=== PATIENT | female | born 1930 | race Caucasian/White ===

== ENCOUNTER 2017-06-30 09:23 | Observation (INO) | payer OTHER ==
--- NOTE | 2017-06-30 09:56 | EDPHY ---
General Time Seen by Provider: 06/30/17 09:32 Narrative: CHIEF COMPLAINT: M1 hold HISTORY OF PRESENT ILLNESS: Patient arrives by EMS and is seen at time arrival. They report that she has been placed on an M1 hold by [facility] due to alleged psychosis , aggression and lack of care. Patient denies any complaints of any kind. She says that she feels fine does not want to be here and does not want evaluation. She is cooperative and not aggressive towards me. She says that she feels that her spouse has been having her medications. She reports that she was started on Seroquel several weeks ago for decreased appetite. It was changed 1 week ago and she did not tolerate this increase, thus she went back to her original dosing. She denies any chest pain, shortness of breath, sore throat, abdominal pain, urinary complaints, rashes or lesions. No headache. No neck pain or stiffness. No other associated complaints or modifying factors. REVIEW OF SYSTEMS: Ten systems reviewed and are negative unless otherwise noted in the HPI PCP: Dr. Finn SPECIALISTS: None PAST MEDICAL HISTORY: Failure to thrive, hypothyroid, scleroderma PAST SURGICAL HISTORY: No recent surgeries SOCIAL HISTORY: Lives in independent living at [facility] FAMILY HISTORY: Noncontributory EXAMINATION General Appearance: Alert, no distress Head: normocephalic, atraumatic Eyes: Pupils equal and round, no conjunctival pallor or injection ENT, Mouth: Mucous membranes moist Neck: Normal inspection, supple, non-tender Respiratory: Lungs are clear to auscultation Cardiovascular: Regular rate and rhythm no murmur Gastrointestinal: Abdomen is soft and nontender Back: non-tender, no bony abnormalities Neurological: Alert to person, place and time. Nonfocal with steady gait. Strength is symmetric in the extremities. No pronator drift. Normal finger-to- nose. Skin: Warm and dry, no rash Extremities: Nontender, no pedal edema Psychiatric: Mood and affect normal. Denies suicidal ideation. No evidence of delusion or hallucinations. DIFFERENTIAL DIAGNOSES: Including but not limited to dementia, psychosis, paranoia, UTI, delirium, pneumonia MDM: 9:30 a.m. M1 hold due to hallucinations and reports of psychosis and possibly grave disability. The patient denies any thoughts of suicide. She denies any complaints of illness. She does arrive on an M1 hold from [employer] as documented. She is very cooperative thus far. There is mention that she may have early dementia, but she is awake and alert at this time. No altered mentation by my appreciation. Vital signs are within normal limits. Her heart rate is regular. I have ordered laboratory studies, chest x-ray, urinalysis and EKG to rule out infection and/or dysrhythmia. She is resting comfortably in no acute distress. 9:50 a.m. I have contacted the patient's son to discuss her care. He states that he was notified this morning by the director of her independent living facility. She informed him that the patient was allegedly being agitated and has stated that she thinks her spouse is hiding her medications. No mention of physical abuse from her. The patient says that she has been stating this for several weeks, feeling that her spouse in the facility is hiding her medications. He notes that she had some psychoses over the past 2 months, with some visual hallucinations. She has been treated with Seroquel and had improvement few weeks ago. One week ago they use her medication she did not tolerate this. She is not certain if she went back to the original dose or she stop this completely. 10:20 a.m. Notified by radiologist Dr. Quinteros. Chronic changes are noted on the CT scan of the head. No acute findings. 10:30 a.m. Radiologist has read the chest x-ray is chronic changes as documented. No mention of pneumonia. 10:33 a.m. CBC reveals an anemia at 7.2 with hematocrit 25. No previous values available for comparison 10:40 a.m. Digital rectal exam performed with female RN plaster tender. No gross blood noted. No hemorrhoids. Occult sample sent 11:30 a.m. M1 hold has been lifted by Dr. Mcdaniel. Patient does not meet criteria by our appreciation at this time. She does however meet criteria for admission with symptomatic anemia and she has been very fatigued and had difficulty ambulating distances. She did not 1st mention this but she did mention when I was discussing her hemoglobin loss. 12:20 p.m. Urinalysis is negative for any infection. Hospitalist has been paged for admission. 12:35 p.m. Case discussed with hospitalist Dr. Storm. She will admit the patient to her service. She is admitted in stable condition. We discussed that she may need inpatient psychiatric evaluation, but at this time she does not meet any criteria for detainer or or M1 hold. SUPERVISION: Patient was independently examined, but I discussed the case with my secondary supervising physician Dr. Mcdaniel - History Smoking Status: Never smoked - Objective Vital Signs: Initial Vital Signs Temperature (C) 98.4 F 06/30/17 09:26 Heart Rate 86 06/30/17 09:26 Respiratory Rate 18 06/30/17 09:26 Blood Pressure 142/45 H 06/30/17 09:26 O2 Sat (%) 95 06/30/17 09:26 O2 Delivery Mode Room Air Allergies/Adverse Reactions: No Known Allergies Allergy (Unverified 09/16/15 10:00) Home Medications: Medication Instructions Recorded Omeprazole Magnesium [Prilosec Otc] 20 mg PO BIDMEAL 09/16/15 Aspirin [Aspirin 325 mg (*)] 325 mg PO DAILY PRN 06/30/17 Herbals/Supplements -Info Only 1 ea PO DAILY 06/30/17 LORazepam [Ativan (*)] 1 mg PO HS 06/30/17 Levothyroxine [Synthroid 75 mcg 75 mcg PO DAILY06 06/30/17 (*)] Laboratory Results: Laboratory Results 06/30/17 09:55 06/30/17 09:55 Medications Given: Levothyroxine Sodium (Synthroid) 75 mcg PO DAILY06 COUNTS INCLUDE 234 BEDS AT THE [facility] Stop: 12/28/17 05:59 Last Admin: 07/01/17 05:47 Dose: 75 mcg Lorazepam (Ativan) 1 mg PO [facility] Stop: 12/27/17 20:59 Last Admin: 06/30/17 21:08 Dose: 1 mg Pantoprazole Sodium (Protonix) 40 mg PO BIDMEAL COUNTS INCLUDE 234 BEDS AT THE [facility] Stop: 12/27/17 17:59 Last Admin: 06/30/17 17:39 Dose: 40 mg Departure - Departure Disposition: [facility] Acute Clinical Impression: Symptomatic anemia, Weakness Condition: Good
--- NOTE | 2017-06-30 09:57 | CPEKG ---
Heart Rate: 74 RR Interval: 811 P-R Interval: 116 QRSD Interval: 70 QT Interval: 376 QTC Interval: 418 P Fenwick: 59 QRS Fenwick: 13 T Wave Fenwick: 34 EKG Severity - ABNORMAL ECG - EKG Impression: SINUS RHYTHM Electronically Signed By: Julito Mcdaniel 30-Jun-2017 10:08:23
[2017-06-30 10:13] LABS: PLATELET COUNT 442 10^3/uL (150-400)
[2017-06-30] MEDS ORDERED: ONDANSETRON DISINTEGRATING 4 MG TAB PO PRN (14:45)
[2017-06-30] MEDS ORDERED: oxyCODONE IR 5 MG TAB PO PRN (14:45)
[2017-06-30] MEDS ORDERED: ACETAMINOPHEN 325 MG TAB PO PRN (14:45)
[2017-06-30] MEDS ORDERED: ONDANSETRON 4 MG/2 ML VIAL IVP PRN (14:45)
[2017-06-30] MEDS ORDERED: PROMETHAZINE HCL 25 MG/ML INJ IVP PRN (14:45)
--- NOTE | 2017-06-30 16:12 | GHP ---
[f rep st] HISTORY AND PHYSICAL DATE OF ADMISSION: 06/30/2017 CHIEF COMPLAINT: "Had an argument with my ." HISTORY OF PRESENT ILLNESS: This is an 87-year-old female with past medical history that includes GE RD and scleroderma, who presents to the ER initially on an M1 hold with concerns of bizarre behavior and perhaps psychosis. Per report, the patient was acting strangely at her assisted living facility and her had concerns as well that she may be hiding medications or doing other abnormal behav iors. By the time of her arrival here in the emergency department, she was alert, oriented, and quit e rational and lucid appearing. She does admit to having some concerns that someone has been breakin g into her apartment and perhaps stealing things from her, though she assures me that this is not an illusion, but is actually happening. She is easily reoriented and denied any suicidal or homicidal i deation. Otherwise, she only complains of feeling more and more tired over the last several years. 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 She states that she feels her fatigue is in keeping with usual old age. She does note that she has had some dark stools in the past, but not recently. She has had a colon oscopy many years ago and is very reluctant to ever undergo another one given her age. PAST MEDICAL HISTORY: 1. GERD. 2. Scleroderma. 3. Raynaud's. 4. Hypothyroid. PAST SURGICAL HISTORY: She does not not recall, but denies any abdominal surgeries, and states that they were very remote. FAMILY HISTORY: This was reviewed and noncontributory. SOCIAL HISTORY: The patient resides at [facility] with her who she is a caregiver for . She has 2 grown children living out of [facility]. She is a nonsmoker, nondrinker, nondrug user. REVIEW OF SYSTEMS: A 10-point review of systems was obtained and negative except as per HPI. MEDICATIONS: Include: 1. Omeprazole. 2. Levothyroxine. 3. Ativan. 4. Aspirin. ALLERGIES: No known drug allergies. PHYSICAL EXAMINATION: VITAL SIGNS: Blood pressure 155/77, heart rate 72, respiratory rate 15, O2 sa turations 95% on room air, and temperature is 36.8. GENERAL APPEARANCE: This is an elderly, frail appearing female. She is awake and alert. She is in no acute distress. EYES: Anicteric. HENT: M oist mucous membranes. Oropharynx clear. CARDIOVASCULAR: Regular rate and rhythm, no MRG. PULMONA RY: CTA bilaterally. Normal work of breathing. ABDOMEN: Soft, nontender. Positive bowel sounds. EXTREMITIES: Trace bilateral lower extremity edema. SKIN: Warm, dry, well perfused. NEURO/PSYCHIATRIC: Patient is oriented and appropriate. Her thought process is rational and linear. CLINICAL DATA: Labs are notable for a hemoglobin of 7.2, hematocrit 25.3, platelets of 442. Sole Tacker ry is unremarkable. TSH is 0.9. Urinalysis shows only 1+ leukocyte esterase. Stool occult blood is negative. Tox screen is positive only for benzodiazepines. Chest x-ray: Personally reviewed and interpreted, shows linear scarring versus atelectasis, unchange d from prior head CT without acute findings showing moderate atrophy and other nonspecific hypodensit ies in the white matter. ASSESSMENT AND PLAN: This is an 87-year-old female presenting with concerns of psychotic behavior at home, as well as anemia. 1. Question of psychosis. Again, this seems incompatible with evaluation here in the emergency depa rtment. Her M1 hold was dropped. We will continue to monitor and consider involvement of [facility] or [facility] if this recurs, but at this time, I do not see any obvious reason for psychiatric consultatio n. Will attempt to get more information from patient's . 2. Anemia. There was concern that this could be symptomatic anemia per the emergency department. Destin ramírez, in discussion with the patient she notes that she has been fatigued for many years and attrib utes this to her advanced age. Her baseline hemoglobin and hematocrit are unknown. She has no sympt oms to suggest active bleeding. She is not interested in undergoing a gastrointestinal workup includ ing colonoscopy or EGD. At this time, we will obtain serial hemoglobin and hematocrit and only consi dang further workup if it appears she is having an acute blood-loss episode. 3. Gastroesophageal reflux disease. We will continue proton pump inhibitor. 4. Hypothyroidism. Will continue levothyroxine. 5. Scleroderma. No significant evidence of this on examination, and patient states she is no longer on medications. Suspect this is a limited scleroderma history. 6. Code status. This was discussed with the patient. She states she would like to be do not resusc itate. 7. Observation status. The patient will likely need less than a 48-hour stay. 8. Patient is new to my care. Old records reviewed and summarized as per HPI and past medical histo ry. Care plan reviewed with emergency department physician including plans for workup of anemia. /[id number]/MODL
[2017-06-30] MEDS: PANTOPRAZOLE SODIUM 40 MG TAB PO SCH (17:39)
[2017-06-30] MEDS: LORazepam 1 MG TAB PO SCH (21:08)
[2017-07-01 04:51] LABS: PLATELET COUNT 431 10^3/uL (150-400)
[2017-07-01] MEDS: LEVOTHYROXINE 75 MCG TAB PO SCH (05:47)
[2017-07-01] MEDS: PANTOPRAZOLE SODIUM 40 MG TAB PO SCH ×2 (09:56→21:03)
--- NOTE | 2017-07-01 12:17 | HOSPPROG ---
Hospitalist Progress Note Assessment/Plan: 87 yo F brought in on M1 hold with concerns of psychosis found to have anemia # anemia: quite microcytic, drop in h/h overnight that is likely at least in part dilutional given lack of obvious bleeding. Will repeat occult blood. Smear is concerning for possible hemolytic anemia with schistocytes, will check iron studies as well as LDH, haptoglobin and bilirubin. Patient continues to express the wish to avoid any procedures given her age so will hold off on consulting GI. Transfusing 2 units PRBCs. # ? psychosis: patient brought in on M1 hold with concerns for psychosis and delusions but since arrival has been appropriate, she does express some concerns about people breaking into her house and possibly stealing from her, CM involved, will attempt to get more information from facility. M1 hold dropped. # hypothyroid: continue Lt4, TSH slightly low but appropriate for being on repletion # gerd: patient states this is not worse than prior, continue PPI, consider w/u for UGIB if anemia continues to worsen # generalized weakness: patient states this has been worsening with time, will have pt/ot evaluate # protein calorie malnutrition: BMI of 17, patient notes there has been a prolonged period for her of not wanting to eat much, will ask dietary to eval # dispo: IP status, will need > 48 hours for eval/mgmt of above and monitoring of anemia Subjective: no significant overnight events, patient states she feels much better today, she is worried about her who is home alone Objective: Vital Signs Temp Pulse Resp BP Pulse Ox 37.0 C 75 20 142/69 H 94 07/01/17 07:59 07/01/17 11:50 07/01/17 11:50 07/01/17 11:50 07/01/17 11:50 Laboratory Results 07/01/17 04:16 07/01/17 04:16 06/30/17 07/01/17 07/02/17 05:59 05:59 05:59 Intake Total 400 Output Total 600 Balance -200 elderly frail awake alert anicteric mmm rrr no mrg cta b soft nt nd no cce warm dry well perfused oriented appropriate ICD10 Worksheet Patient Problems: Problems Problem Status Onset Symptomatic anemia Acute Weakness Acute
--- NOTE | 2017-07-01 13:14 | PDMN ---
Medical Necessity Medical necessity: C/M review: Patient meets INPT criteria under [facility] [place]-[facility] Anemia, iron deficiency or unspecified: Acute and persistent anemia, quite microcytic of unclear etiology Hgb 7.2, 6.8, 6.3, Hct 25.3, 23.0, 22.1, stool occult blood screen negative, questionable psychosis and delusions on admission M1 hold, since arrival patient has been appropriate, M1 hold dropped, generalized weakness, protein calorie malnutrition, BMI 17,requiring 2 units PRBCs thus far, Dietary consult, monitoring Hgb, Hct., acute inpt PT/OT, comorbid hypothyroidism, GERD. MD anticipates > 2 [place] LOS for ongoing med nec fro eval and [place] of above. Patient is Medicare Advantage which follows guidelines CMS puts forth.
--- NOTE | 2017-07-01 18:01 | ASMTCMCOM ---
CM Note CM Note Notes: Spoke w/pt, she and her live at [facility]. Pt was brought in for psychotic behavior but cleared after arriving to ER and M1 was dropped. Pt is independent in mobility and fairly clear in her thinking but does seem anxious and at times slightly confused. 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 CM asked pt if she would be open to private caregivers to help and pt says maybe but finds people in the home can add to stress as they are strangers. She and her do not have a car so going to get groceries can be taxing. CM left pt with M[facility] brochure and the [facility]. It's unclear if we can get homecare for pt as she is independent w/mobility but may benefit from HH RN for malnutrition/calorie intake? CM called son Tobias cell:[phone] home:[phone] work:[phone], he is is [place]. Pt's other son a few years ago but he does have a sister who lives in [place]. Son states he and his sister have been concerned for a while and want to get parents into AL but they are resistant. CM gave son names of non skilled homecare agencies and name of a professional artist manager to help, especially with getting POA. Son requests call from , Dr Storm notified and will call son in am. DC Plan: vs Independent Date Signed: 07/01/2017 06:00 PM Electronically Signed By:Christiane Frederick RN
--- NOTE | 2017-07-01 18:07 | ASMTCMCOM ---
CM Note CM Note Notes: Forgot to include on previous note; pt's son states that pt was started on low dose of seroquel because of some delusions, unclear if pt stopped taking them. Date Signed: 07/01/2017 06:07 PM Electronically Signed By:Christiane Frederick RN
[2017-07-01] MEDS: LORazepam 1 MG TAB PO SCH (21:03)
[2017-07-02] MEDS: LEVOTHYROXINE 75 MCG TAB PO SCH (06:33)
[2017-07-02] MEDS: PANTOPRAZOLE SODIUM 40 MG TAB PO SCH (08:33)
[2017-07-02 11:17] VITALS: BP 132/71
--- NOTE | 2017-07-02 13:22 | PDDCSUM ---
Discharge Summary Discharge Summary: Dates of service 06/30-07/02/17 Consultations: none Procedures: head CT Hospital course by problem: 87 yo F brought in on M1 hold with concerns of psychosis found to have anemia # anemia: microcytic and quite low. Discussed blood transfusion and colonoscopy with patient--she declines both. Discussed with her son, he understands and supports his mothers decision to not have this worked up further as she is not interested in prolonging her life and has concerns about a procedure or transfusion. Recommend she f/u with PCP to determine whether or not to recheck blood counts. Discontinued aspirin. # delusions: patient brought in on M1 hold with concerns for psychosis and delusions but since arrival has been appropriate, patient continues to express beliefs that people are breaking into her house to vacuum and steal things. Discussed with her son, this has been an ongoing issues, previously better on seroquel however she is no longer taking this. F/u with PCP to determine whether or not to resume # hypothyroid: continue Lt4, TSH slightly low but appropriate for being on repletion # gerd: patient states this is not worse than prior, continue PPI, consider w/u for UGIB if anemia continues to worsen # generalized weakness: patient states this has been worsening with time, will have pt/ot evaluate # protein calorie malnutrition: BMI of 17, patient notes there has been a prolonged period for her of not wanting to eat much DNR Items for follow up: --discuss with PCP whether or not to recheck blood counts and reconsider transfusion/colonoscopy etc --f/u of delusional thinking and whether or not to resume seroquel dc home > 35 min spent in dc more than half in coordination of care and discussion with patients son
--- NOTE | 2017-07-02 14:20 | ASDISCHSUM ---
Discharge Information Plan Status:Home with No Needs Medically Cleared to Leave:07/02/2017 Discharge Date:07/02/2017 CM D/C Disposition:Home, Routine, Self-Care ADT D/C Disposition:Home, Routine, Self-Care Projected Discharge Date:07/02/2017 Transportation at D/C:Friend Discharge Delay Reason: Follow-Up Date:07/02/2017 Discharge Slot: Final Diagnosis: Placement Information Patient Contact Information Contact Name:YANETH Relationship:Jennifer Address:[address] Work Phone: City:[place] Alternate Phone: State/Zip Code:[place] [address] Email: Financial Information Financial Class:Medicare Advantage Plans Primary Plan Desc:[employer] OUTPAT Primary Plan Number:[id number] Secondary Plan Desc: Secondary Plan Number: Assessment Information [facility] Progress Note CM Note CM Note Notes: Spoke w/pt, she and her live at [facility]. Pt was brought in for psychotic behavior but cleared after arriving to ER and M1 was dropped. Pt is independent in mobility and fairly clear in her thinking but does seem anxious and at times slightly confused. 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 BITA asked pt if she would be open to private caregivers to help and pt says maybe but finds people in the home can add to stress as they are strangers. She and her do not have a car so going to get groceries can be taxing. BITA left pt with MOW brochure and the [facility]. It's unclear if we can get homecare for pt as she is independent w/mobility but may benefit from HH RN for malnutrition/calorie intake? BITA called cristian Collado cell:[phone] home:[phone] work:[phone], he is is [place]. Pt's other son a few years ago but he does have a sister who lives in [place]. Son states he and his sister have been concerned for a while and want to get parents into AL but they are resistant. CM gave son names of non skilled homecare agencies and name of a professional efficiency manager to help, especially with getting POA. Son requests call from , Dr Storm notified and will call son in am. DC Plan: [facility] Independent Date Signed: 07/01/2017 06:00 PM Electronically Signed By:Christiane Frederick RN LACE LACE Length of stay for Answers: 2 days current admission Acuity / Level of Answers: Yes Care: Did the patient have an inpatient admission? Comorbidities - select Answers: Other Notes: Hypothyroid,Gerd, Scler ode all that apply Navneet brice # of Emergency department Answers: 1-2 visits in the last 6 months Social determinants Answers: Mental health diagnosis (anxiety, depression, pers onality disorders, etc.) Score: 10 Date Signed: 07/02/2017 02:19 PM Electronically Signed By:NAYELY Driver [facility] Progress Note CM Note CM Note Notes: Forgot to include on previous note; pt's son states that pt was started on low dose of seroquel because of some delusions, unclear if pt stopped taking them. Date Signed: 07/01/2017 06:07 PM Electronically Signed By:Christiane Frederick RN Case Management Discharge Plan Note Case Management Discharge Discharge Order Complete? Answers: Yes Patient to Obtain Answers: Independently Medications Transportation Arranged Answers: Family/Friends Family Notified Answers: Yes Discharge Comments Notes: Pt is discharging back to [facility] with no CM needs. Hospitalist spoke with pt's son. Pt to f/u with PCP. Date Signed: 07/02/2017 02:18 PM Electronically Signed By:NAYELY Driver Intervention Information
== END 2017-07-02 14:24 | disposition home or self-care (01) ==
LOC: EDUNIT# → INTOOBSV 12:36 → OBSVTOIN 12:36 → F3E 13:53
PROVIDERS: ADMIT Internal Medicine; ATTEND Internal Medicine
DX: D50.8 Other iron deficiency anemias (principal); F22 Delusional disorders; E03.9 Hypothyroidism, unspecified; R53.1 Weakness; K21.9 Gastro-esophageal reflux disease without esophagitis; E46 Unspecified protein-calorie malnutrition; Z68.1 Body mass index [BMI] 19.9 or less, adult
CPT/HCPCS: 70450; 71045; 93005; 97165; 99285; G0378; 80305; 83010-90; G0480

== ENCOUNTER 2017-09-29 11:18 | Emergency (ER) | payer OTHER ==
--- NOTE | 2017-09-29 11:22 | EDPHY ---
HPI/HX/ROS/PE/MDM Narrative: CHIEF COMPLAINT: Fall, scalp laceration HPI: The patient is an 87 y/o female with dementia arriving via EMS for evaluation following a mechanical fall from standing this morning. Per EMS, bystanders reported her tripped and fell into her causing her to fall to the ground while at the [employer]. She denies loss of consciousness, but did strike the back of her head sustaining an occipital laceration. She complains of mild lower back pain slightly worse with movement that she attributes to being forced to lie on the ground after the fall. No weakness, paresthesias, chest pain, dyspnea, abdominal pain, pelvic pain, extremity injuries, or other complaints. No anticoagulants. REVIEW OF SYSTEMS: Aside from elements discussed in the HPI, a comprehensive 10-point review of systems was reviewed and is negative. PMH: Dementia, GERD, scleroderma, Raynaud's, hypothyroidism SOCIAL HISTORY: , lives in [place], retired. PHYSICAL EXAM: General:Patient is alert, in no acute distress. Head: Laceration left occiput measuring 2cm ENT:Eyes are normal to inspection. ENT inspection normal. Neck: Normal inspection. Full range of motion. Respiratory:No respiratory distress. Breath sounds normal bilaterally. Cardiovascular: Regular rate and rhythm. Strong peripheral pulses. Normal cap refill. Abdomen:The abdomen is nontender to palpation. There are no peritoneal signs. Pelvis: Stable. Back: Normal to inspection. No tenderness to palpation. Skin: Normal color. No rash. Warm and dry. Extremities: Normal appearance. Full range of motion. Neuro: Oriented x3. Normal motor function. Normal sensory function. (Zhen Galvez) ED Course: This is an 87 y/o female who presents with an occipital laceration secondary to a mechanical fall after her fell into her this morning. She additionally complains of lower back pain, but is refusing any imaging of this and is requesting Tylenol for it only. She has a normal neurovascular exam. She consents to wound care and laceration repair. Laceration repair by ANSELMO Zayas. Patient will be discharged with standard care and follow up instructions. Return precautions discussed. She is comfortable with plan for discharge. ( Zhen Galvez) MDM: I was asked by Dr. Galvez to repair scalp laceration. Laceration repair. Verbal consent was obtained from the patient. The 2 cm laceration on the left parietal scalp was anesthetized using 1% lidocaine with epinephrine. The wound was irrigated with saline, draped and explored to its base with a gloved finger. There were no deep structures involved. The wound was repaired with 5 0 Prolene, 5 sutures. The wound repair was simple. The procedure was performed by myself. (Adeola Zayas) General Time Seen by Provider: 09/29/17 11:20 Initial Vital Signs: Initial Vital Signs Temperature (C) 36.4 C 09/29/17 11:24 Heart Rate 70 09/29/17 11:24 Respiratory Rate 16 09/29/17 11:24 Blood Pressure 147/79 H 09/29/17 11:24 O2 Sat (%) 97 09/29/17 11:24 O2 Delivery Mode Room Air Allergies/Adverse Reactions: No Known Allergies Allergy (Verified 09/29/17 11:27) Home Medications: Medication Instructions Recorded Omeprazole Magnesium [Prilosec Otc] 20 mg PO BIDMEAL 09/16/15 Herbals/Supplements -Info Only 1 ea PO DAILY 06/30/17 Levothyroxine [Synthroid 75 mcg 75 mcg PO DAILY06 06/30/17 (*)] Acetaminophen [Tylenol 325mg (*)] 650 mg PO Q4HRS PRN tab 07/02/17 Ferrous Sulfate [Ferrous Sulf 325 325 mg PO DAILY #30 tab 07/02/17 MG (*)] Departure - Departure Disposition: Home, Routine, Self-Care Clinical Impression: Occipital scalp laceration Qualifiers: Encounter type: initial encounter Qualified Code(s): S01.01XA - Laceration without foreign body of scalp, initial encounter Fall Qualifiers: Encounter type: initial encounter Qualified Code(s): W19.XXXA - Unspecified fall, initial encounter Condition: Good Instructions: Laceration (ED), Fall Prevention for Older Adults (ED) Additional Instructions: 1. Return in 7 days for suture removal. 2. Apply ice to sore areas if helpful for pain. Use Tylenol and ibuprofen as directed on the packaging if needed for pain over the next 2-3 days. 3. Follow up with your primary care provider in 2-3 days for reevaluation. 4. Return to the ED for severe pain, weakness or numbness, headache, vision changes, speech difficulty, or other worsening of condition. Referrals: David Hernandez MD [Medical Doctor] - As per Instructions Report Scribed for: Zhen Galvez Report Scribed by: Gwen Lopez Date of Report: 09/29/17 Time of Report: 11:22 Physician Review and Approval Statement: Portions of this note were transcribed by an ED scribe. I personally performed the history, physical exam, and medical decision making; and confirm the accuracy of the information in the transcribed note.
[2017-09-29] MEDS ORDERED: TDAP ADULT 0.5 ML INJ (BOOSTRIX) IM ONE (12:15)
[2017-09-29 12:44] VITALS: BP 180/95
[2017-09-29] MEDS ORDERED: ACETAMINOPHEN 500 MG TAB PO ONE (13:12)
== END 2017-09-29 13:17 | disposition home or self-care (01) ==
LOC: EDUNIT#
PROC: 0HQ0XZZ Repair Scalp Skin, External Approach (ICD-10-PCS; principal; 2017-09-29)
DX: S01.01XA Laceration without foreign body of scalp, initial encounter (principal); Z23 Encounter for immunization; W01.0XXA Fall on same level from slipping, tripping and stumbling without subsequent striking against object, initial encounter; Y92.89 Other specified places as the place of occurrence of the external cause; Y99.8 Other external cause status; Y93.89 Activity, other specified